=== PATIENT | female | born 1985 | race Two or more races ===

== ENCOUNTER 2024-11-30 14:06 | Inpatient (IN) | payer MEDICAID ==
[~2024-11-30] VITALS: Ht 170.2 cm; Wt 136.6 kg
--- NOTE | 2024-11-30 14:27 | ED.PDOC ---
HPI Comments 39 y.o female presents to the ED with acute onset palpitations associated with substernal chest pain, and SOB, accompanied by severe anxiety and distress. Patient reports symptoms presented about one hour ago, states she tried to take a shower but progressively worsened. Patient states chest pain is non radiating, sharp and constant as well. Patient is pacing, unable to sit still, and reports feeling like she is having a panic attack. Patient denies any other symptoms or pain at this time. Patient has a history of AFIB, not on any medication for this at the moment, anxiety and panic disorder. Chief Complaint: Chest Pain Time Seen by MD: 14:10 Reviewed Notes: Nurses Notes, Medications, Allergies Allergies: Coded Allergies: NO KNOWN ALLERGIES (Unverified , 11/30/24) Information Source: Patient Mode of Arrival: Ambulatory Severity: Moderate Timing: Hours (1) Duration: Since onset Location: Substernal Radiation: No Radiation Quality: Sharp Onset: At Rest Cardiac Risk Factors: Other PE Risk Factors: None History of: Similar pain in past Modifying Factors: Nothing Associated Signs and Symptoms: SOB, Palpitations Past Medical History PAST MEDICAL HISTORY: AFIB, Anxiety Surgical History: Cholecystectomy, PHLEBOTOMY COORDINATOR History: No Pertinent PHLEBOTOMY COORDINATOR History Family History Family History: Reviewed,noncontributory to illness Social History Smoker: Non-Smoker Alcohol: Denies ETOH Use Drugs: Denies Drug Use Lives In: Home Constitutional: denies: chills, diaphoresis, fatigue, fever, malaise, sweats, weakness, others EENTM: denies: blurred vision, double vision, ear bleeding, ear discharge, ear drainage, ear pain, ear ringing, eye pain, eye redness, hearing loss, mouth pain, mouth swelling, nasal discharge, nose bleeding, nose congestion, nose pain, photophobia, tearing, throat pain, throat swelling, voice changes, others Respiratory: reports: SOB at rest, shortness of breath; denies: cough, hemoptysis, orthopnea, SOB with excertion, stridor, wheezing, others Cardiovascular: reports: chest pain, palpitations; denies: dizzy spells, diaphoresis, Dyspnea on exertion, edema, irregular heart beat, left arm pain, lightheadedness, PND, syncope, others Gastrointestinal: denies: abdomen distended, abdominal pain, blood streaked bowels, constipated, diarrhea, dysphagia, difficulty swallowing, hematemesis, melena, nausea, poor appetite, poor fluid intake, rectal bleeding, rectal pain, vomiting, others Genitourinary: denies: abnormal vagina bleeding, burning, dyspareunia, dysuria, flank pain, frequency, hematuria, incontinence, pain, , vagina discharge, urgency, others Neurological: denies: dizziness, fainting, headache, left sided numbness, left sided weakness, numbness, paresthesia, pre-existing deficit, right sided numbness, right sided weakness, seizure, speech problems, tingling, tremors, weakness, others Musculoskeletal: denies: back pain, gout, joint pain, joint swelling, muscle pain, muscle stiffness, neck pain, others Integumetry: denies: bruises, change in color, change in hair/nails, dryness, laceration, lesions, lumps, rash, wounds, others Allergic/Immunocompromised: denies: Difficulty Healing, Frequent Infections, Hives, Itching, others Hematologic/Lymphatic: denies: anemia, blood clots, easy bleeding, easy bruising, swollen glands, others Endocrine: denies: excessive hunger, excessive sweating, excessive thirst, excessive urination, flushing, intolerance to cold, intolerance to heat, unexplained weight gain, unexplained weight loss, others Psychiatric: reports: anxiety, panic disorder; denies: bipolar disorder, d epression, hopeless, schizophrenia, sleepless, suicidal, others All Other Systems: Reviewed and Negative Physical Exam General Appearance: Moderate Distress HEENT: Normal ENT Inspection, Pharynx Normal, TMs Normal Neck: Full Range of Motion, Non-Tender, Normal, Normal Inspection Respiratory: Chest Non-Tender, Lungs Clear, No Accessory Muscle Use, No Respiratory Distress, Normal Breath Sounds Cardiovascular: No Edema, No JVD, No Murmur, No Gallop, Normal Peripheral Pulses, Tachycardia Breast Exam: Deferred Gastrointestinal: No Organomegaly, Non Tender, No Pulsatile Mass, Normal Bowel Sounds, Soft Genitalia: Deferred Pelvic: Deferred Rectal: Deferred Extremities: No calf tenderness, Normal capillary refill, Normal inspection, Normal range of motion, Non-tender, No pedal edema Musculoskeletal : Apperance: Normal Neurologic: Alert, post graduate internship II-XII nml as Tested, No Motor Deficits, Normal Affect, Normal Mood, No Sensory Deficits Cerebellar Function: Normal Reflexes: Normal Skin: Dry, Normal Color, Warm Peripheral Pulses: 3+ Radial (R), 3+ Radial (L) Lymphatic: No Adenopathy EKG EKG : Pulse Rate (adult): 119 Cardiac Rhythm: ST Was a procedure done? Was a procedure done?: No CP Differential Dx Differential Diagnosis: A-fib, A-Flutter, Angina, Anxiety / Panic Attack, Atrial Dysrhythmia, Electrolyte Disorder, Pulmonary Embolus, Sinus Tachycardia Differential Diagnosis: Angina, Chest Wall Pain, Costochondritis, Esophageal reflux/spasm, Pericarditis X-Ray, Labs, Meds, VS Vital Signs Date Time Temp Pulse Resp B/P (MAP) Pulse Ox O2 Delivery O2 Flow Rate FiO2 11/30/24 16:43 89 21 93 Room Air* 0 21 11/30/24 16:42 89 12 132/81 (98) 96 11/30/24 16:41 92 12 132/81 11/30/24 16:01 103 23 137/85 11/30/24 14:27 119 11/30/24 14:25 98.0 119 36 109/85 (93) 98 98.0 11/30/24 14:10 119 Lab Test 11/30/24 17:00 11/30/24 16:30 11/30/24 14:38 Range/Units Urine Color Pending Urine Clarity Pending Urine pH Pending Urine Specific [place] Pending Urine Protein Pending Urine Ketones Pending Urine Blood Pending Urine Nitrite Pending Urine Bilirubin Pending Urine Urobilinogen Pending Urine Leukocyte Esterase Pending Urine RBC Pending Urine Microscopic WBC Pending Urine Squamous Epithelial Cells Pending Urine Bacteria Pending Urine Glucose Pending Troponin I High Sensitivity < 3 L < 3 L </=34 ng/L White Blood Count 15.3 H 4.4-10.8 10^3/uL Red Blood Count 4.41 4.0-5.20 10^6/uL Hemoglobin 11.3 L 12.2-16.2 g/dL Hematocrit 35.2 L 36.0-46.0 % Mean Corpuscular Volume 79.7 L 80.0-100.0 fL Mean Corpuscular Hemoglobin 25.7 L 28.0-32.0 pg Mean Corpuscular Hemoglobin Concent 32.2 32.0-36.0 g/dL Red Cell Distribution Width 16.8 H 11.8-14.3 % Platelet Count 328 140-450 10^3/uL Mean Platelet Volume 8.7 6.9-10.8 fL Neutrophils (%) (Auto) 65.5 37.0-80.0 % Lymphocytes (%) (Auto) 26.2 10.0-50.0 % Monocytes (%) (Auto) 6.1 0.0-12.0 % Eosinophils (%) (Auto) 1.1 0.0-7.0 % Basophils (%) (Auto) 1.1 0.0-2.0 % Neutrophils # (Auto) 10.0 H 1.6-8.6 10 ^3/uL Lymphocytes # (Auto) 4.0 0.4-5.4 10 ^3/uL Monocytes # (Auto) 0.9 0-1.3 10 ^3/uL Eosinophils # (Auto) 0.2 0-0.8 10 ^3/uL Basophils # (Auto) 0.2 0-0.2 10 ^3/uL Nucleated Red Blood Cells 0.0 % Sodium Level 139 136-145 mmol/L Potassium Level 4.1 3.5-5.1 mmol/L Chloride Level 107 98-107 mmol/L Carbon Dioxide Level 16 L 20-31 mmol/L Anion Gap 16 H 5-15 Blood Urea Nitrogen 10 9-23 mg/dL Creatinine 0.67 0.550-1.02 mg/dL Glomerular Filtration Rate Calc 113 >90 mL/min BUN/Creatinine Ratio 14.9 10.0-20.0 Serum Glucose 143 H 74-106 mg/dL Calcium Level 10.4 8.7-10.4 mg/dL Current Medications Medications (Trade) Dose Ordered Sig/Ahmet Route Start Time Stop Time Status Last Admin Lorazepam (Ativan Inj) 2 mg ONCE ONCE IV 11/30/24 15:15 11/30/24 15:16 DC 11/30/24 15:17 Ondansetron HCl (Zofran) 4 mg ONCE ONCE IV 11/30/24 16:00 11/30/24 16:01 DC 11/30/24 15:58 Morphine Sulfate 4 mg ONCE ONCE IV 11/30/24 16:00 11/30/24 16:01 DC 11/30/24 16:01 Patient alert. Tachycardia. Hyperventilating. Saturation pristine on room air. History of atrial fibrillation. EKG reviewed does show tachycardia. She is unable to give a history without being short of breath. Reviewed her history. Explained to the patient. Continue monitoring. Time of 1ST Reevaluation: 14:22 Reevaluation 1ST: Unchanged Patient Education/Counseling: Diagnosis, Treatment, Prognosis Family Education/Counseling: No Family Present Departure 1 Departure Time of Disposition: 14:32 Impression: Primary Impression: Chest pain of unknown etiology Disposition: ADMITTED INPATIENT Admit to: Med Surg Condition: Guarded Critical Care Note Critical Care Time?: Yes (90 min-critical care time only) Critical care comment: She is hyperventilating complaining of chest pain continue to monitor Stability Stability form required: No Heart Score Heart Score: Heart Score Response (Comments) Value History Slightly Suspicious 0 EKG Normal 0 Age <45 0 Risk Factors >3 or Hx ASHD 2 Troponin Normal limit 0 Total 2 I personally scribed for KERI RIVAS MD ([email or web address]) on 11/30/24 at 14:27. Electronically submitted by Demetria Neves ([facility]). KERI RIVAS MD Nov 30, 2024 14:27
--- NOTE | 2024-11-30 14:51 | ECG ---
[facility] Test Date: 2024-11-30 Test Time: 14:10:58 Pat Name: FRANKO LOPEZ Department: ER Room: [address] [place] [address] Gender: F Delivery Department Supervisor: MABEL : 1985 Requested By: KERI RIVAS Order Number: [id number] Reading MD: Cassius Chew Measurements Intervals Donora Rate: 119 P: 0 MT: 166 QRS: 83 QRSD: 91 T: 8 QT: 312 QTc: 439 Interpretive Statements Sinus tachycardia Low voltage, precordial leads Borderline ST elevation, lateral leads Baseline wander in lead(s) I,II,III,aVL,aVF,V1,V2,V5,V6 Electronically Signed On 12-01-2024 12:37:47 PDT by Cassius Chew Please click the below link to view image of tracing.
[2024-11-30 15:00] LABS: Basophils # (auto) 0.2 10 ^3/uL (0-0.2); Eosinophils # (auto) 0.2 10 ^3/uL (0-0.8); Hemoglobin 11.3 g/dL (12.2-16.2)
[2024-11-30 15:01] LABS: Basophils % (auto) 1.1 % (0.0-2.0); Eosinophils % (auto) 1.1 % (0.0-7.0); Hematocrit 35.2 % (36.0-46.0); Lymphocytes % (auto) 26.2 % (10.0-50.0); Mean Corpuscular Hemoglobin 25.7 pg (28.0-32.0); Mean Corpuscular Hgb Conc. 32.2 g/dL (32.0-36.0); Mean Corpuscular Volume 79.7 fL (80.0-100.0); Monocytes # (auto) 0.9 10 ^3/uL (0-1.3); Monocytes % (auto) 6.1 % (0.0-12.0); Neutrophils % (auto) 65.5 % (37.0-80.0); Platelet Count (auto) 328 10^3/uL (140-450); Red Blood Cells 4.41 10^6/uL (4.0-5.20); Red Cell Distribution Width 16.8 % (11.8-14.3); White Blood Cell 15.3 10^3/uL (4.4-10.8)
[2024-11-30 15:11] LABS: Potassium 4.1 mmol/L (3.5-5.1); Sodium 139 mmol/L (136-145)
[2024-11-30 15:12] LABS: Anion Gap 16 (5-15)
[2024-11-30 15:17] LABS: BUN/Creatinine Ratio 14.9 (10.0-20.0); Blood Urea Nitrogen 10 mg/dL (9-23); Calcium 10.4 mg/dL (8.7-10.4); Carbon Dioxide 16 mmol/L (20-31); Chloride 107 mmol/L (98-107); Glucose 143 mg/dL (74-106)
[2024-11-30] MEDS: LORazepam 2MG/ML-1ML VIAL IV ONE ×2 (15:17→20:22)
[2024-11-30] MEDS: ONDANSETRON HCL 4 MG/2 ML VIAL IV ONE (15:58)
[2024-11-30] MEDS: MORPHINE SULFATE 4 MG/ML SYR/VIAL IV ONE ×2 (16:01→20:22)
[2024-11-30 16:43] VITALS: PULSE 89; RESP 21; O2SAT 93
[2024-11-30 17:07] LABS: Urine Bacteria None Seen /hpf (None Seen)
[2024-11-30 17:22] LABS: Urine Amorphous Crystal FEW /hpf (None Seen); Urine Blood 3+ /uL (Negative); Urine Clarity Turbid (Clear); Urine Color Yellow (Yellow); Urine Mucus FEW (None Seen); Urine Protein, UAD Negative (Negative); Urine Specific Gravity 1.019 (1.001-1.035); Urine Squamous Epithelial Cell MOD /hpf (<5); Urine Urobilinogen Normal (Negative); Urine WBC < 1 /HPF (0-5); Urine pH 5.5 (5.0-9.0)
[2024-11-30 19:40] VITALS: PULSE 104; RESP 16; O2SAT 97
[2024-11-30] MEDS ORDERED: hydrALAZINE HCL 20 MG/ML VL IV PRN (21:00)
[2024-11-30] MEDS ORDERED: ONDANSETRON HCL 4 MG/2 ML VIAL IV PRN (21:00)
[2024-11-30] MEDS ORDERED: DOCUSATE SOD 100 MG CAP PO PRN (21:00)
[2024-11-30] MEDS ORDERED: ACETAMINOPHEN 325 MG TAB PO PRN (21:00)
[2024-11-30] MEDS: SODIUM CHLORIDE 0.9% 1,000 ML IV SCH (21:56)
[2024-11-30] MEDS: cefTRIAXone 1GM/50ML D5W 50 ML IV ONE (21:56)
--- NOTE | 2024-11-30 22:58 | DVHHP2 ---
History of Present Illness Reason for Visit: Chest pain of unknown etiology History of Present Illness The patient is a 39-year-old female morbidly obese with past medical history of AFib, anxiety, and hypertension who presented to [facility] ED with complaint of acute onset of palpitation. Patient reports symptoms progressively get worse with substernal chest pain, nonradiating, sharp in nature, rating 5/10 numeric scale, shortness of breaths, anxiety, getting worse that prompted this visit. Patient was seen and evaluated in the ED, laboratory data shows WBC 15.3, hemoglobin 11.3, hematocrit 35.2, platelets 328, sodium 139, potassium 4.1, BUN 10, creatinine 0.67, anion gap 16, glucose 143, troponin < 3, blood pressure 143/96, heart rate 96, temperature 98.0 F, O2 saturation 98% on oxygen. Please see medication orders section in the computer. On my assessment, patient denied chest pain at this moment, no dizziness, no headache, no diaphoresis, currently on oxygen, no nausea, vomiting, no fever, no chills. Patient was admitted for further evaluation and medical management. Past Medical History AFIB, Anxiety Past Surgical History Cholecystectomy, Family History Reviewed, noncontributory to the management of this case. Past Social History The patient lives at home, denies smoking, alcohol or illicit drugs abuse. Review of Systems Constitutional: No: Fever, Chills, Sweats, Weakness, Malaise, Other Eyes: No: Pain, Vision change, Conjunctivae inflammation, Eyelid inflammation, Other, Redness ENT: No: Ear pain, Ear discharge, Nose pain, Nose discharge, Nose congestion, Mouth pain, Mouth swelling, Throat pain, Throat swelling, Other Respiratory: Shortness of breath, Other (SOB at rest); No: Cough, Dry, SOB with excertion, Wheezing, Hemoptysis, Pleuritic Pain, Sputum, Wheezing Cardiovascular: Chest Pain, Palpitations; No: Orthopnea, Paroxysmal Noc. Dyspnea, Edema, Lt Headedness, Other Gastrointestinal: No: Nausea, Vomiting, Abdominal Pain, Diarrhea, Constipation, Melena, Hematochezia, Other Genitourinary: No Dysuria, No Frequency, No Incontinence, No Hematuria, No Retention, No Other Musculoskeletal: No: other, neck pain, shoulder pain, arm pain, back pain, hand pain, leg pain, foot pain Skin: No: Rash, Lesions, Jaundice, Bruising, Other Neurological: No: Weakness, Numbness, Incoordination, Change in speech, Confusion, Seizures, Other Allergies: Coded Allergies: NO KNOWN ALLERGIES (Unverified , 11/30/24) Medications Current Medications Medications Dose Ordered Sig/Ahmet Route Start Time Stop Time Status Last Admin Dose Admin Lisinopril 20 mg DAILY PO 12/01/24 10:00 Hydralazine HCl 10 mg Q6HP PRN IV 11/30/24 21:00 Lorazepam 0.5 mg Q8HP PRN IV 11/30/24 21:00 Aspirin 81 mg DAILY PO 12/01/24 10:00 Sodium Chloride 1,000 ml @ 60 mls/hr [id number] IV 11/30/24 21:00 11/30/24 21:56 60 MLS/HR Acetaminophen/ Hydrocodone Bitart 1 tab Q4HP PRN PO 11/30/24 21:00 Ondansetron HCl 4 mg Q4HP PRN IV 11/30/24 21:00 Docusate Sodium 100 mg BIDPRN PRN PO 11/30/24 21:00 Acetaminophen 650 mg Q6HP PRN PO 11/30/24 21:00 Morphine Sulfate 2 mg Q4HPRN PRN IV 11/30/24 21:00 Ceftriaxone Sodium 50 ml @ 100 mls/hr DAILY@09 IV 12/01/24 09:00 Exam Vital Signs Vital Signs Date Time Temp Pulse Resp B/P (MAP) Pulse Ox O2 Delivery O2 Flow Rate FiO2 11/30/24 20:52 97 17 118/85 11/30/24 19:40 97 Room Air* 0 21 11/30/24 19:40 98.3 98.3 General Appearance: Alert, Oriented X3, Cooperative, No acute distress HEENT: Atraumatic, PERRLA, EOMI, Mucous membr. moist/pink Respiratory: Normal air movement Cardiovascular: Regular rate, Normal S1, Normal S2, No murmurs Abdominal: Normal bowel sounds, Soft, No tenderness, No hepatospenomegaly, No masses Extremities: No clubbing, No cyanosis, No edema, Normal pulses, No tenderness/ swelling Skin: No rashes, No breakdown, No significant lesion Neuro: Normal speech, Normal tone, Sensation intact, Cranial nerves 3-12 NL, Reflexes 2+ Psych/Mental Status: Mental status NL, Mood NL Labs/Xrays Labs Test 11/30/24 17:00 11/30/24 16:30 11/30/24 14:38 Range/Units Urine Color Yellow Yellow Urine Clarity Turbid H Clear Urine pH 5.5 5.0-9.0 Urine Specific [place] 1.019 1.001-1.035 Urine Protein Negative Negative Urine Ketones Negative Negative Urine Blood 3+ H Negative /uL Urine Nitrite Negative Negative Urine Bilirubin Negative Negative Urine Urobilinogen Normal Negative mg/dL Urine Leukocyte Esterase Negative Negative /uL Urine RBC 14 0 - 4 /hpf Urine Microscopic WBC < 1 0-5 /HPF Urine Squamous Epithelial Cells Mod <5 /hpf Urine Amorphous Crystals Few None Seen /hpf Urine Bacteria None seen None Seen /hpf Urine Mucus Few None Seen Urine Glucose Normal Normal mg/dL Troponin I High Sensitivity < 3 L </=34 ng/L White Blood Count 15.3 H 4.4-10.8 10^3/uL Red Blood Count 4.41 4.0-5.20 10^6/uL Hemoglobin 11.3 L 12.2-16.2 g/dL Hematocrit 35.2 L 36.0-46.0 % Mean Corpuscular Volume 79.7 L 80.0-100.0 fL Mean Corpuscular Hemoglobin 25.7 L 28.0-32.0 pg Mean Corpuscular Hemoglobin Concent 32.2 32.0-36.0 g/dL Red Cell Distribution Width 16.8 H 11.8-14.3 % Platelet Count 328 140-450 10^3/uL Mean Platelet Volume 8.7 6.9-10.8 fL Neutrophils (%) (Auto) 65.5 37.0-80.0 % Lymphocytes (%) (Auto) 26.2 10.0-50.0 % Monocytes (%) (Auto) 6.1 0.0-12.0 % Eosinophils (%) (Auto) 1.1 0.0-7.0 % Basophils (%) (Auto) 1.1 0.0-2.0 % Neutrophils # (Auto) 10.0 H 1.6-8.6 10 ^3/uL Lymphocytes # (Auto) 4.0 0.4-5.4 10 ^3/uL Monocytes # (Auto) 0.9 0-1.3 10 ^3/uL Eosinophils # (Auto) 0.2 0-0.8 10 ^3/uL Basophils # (Auto) 0.2 0-0.2 10 ^3/uL Nucleated Red Blood Cells 0.0 % Sodium Level 139 136-145 mmol/L Potassium Level 4.1 3.5-5.1 mmol/L Chloride Level 107 98-107 mmol/L Carbon Dioxide Level 16 L 20-31 mmol/L Anion Gap 16 H 5-15 Blood Urea Nitrogen 10 9-23 mg/dL Creatinine 0.67 0.550-1.02 mg/dL Glomerular Filtration Rate Calc 113 >90 mL/min BUN/Creatinine Ratio 14.9 10.0-20.0 Serum Glucose 143 H 74-106 mg/dL Calcium Level 10.4 8.7-10.4 mg/dL Assessment/Plan Assessment/Plan Chest pain of unknown etiology Morbid obesity Leukocytosis, unspecified Generalized weakness Plan 1. Admit to telemetry unit 2. Breathing treatment 3. Pain control management 4. IV antibiotic management 5. Management of fluids and electrolytes 6. Consultation for hospitalist 7. Diagnostic test chest x-ray 8. DVT prophylaxis-on aspirin 9. Repeat labs CBC, CMP in a.m. 10. Home medication reviewed and reconciled 11. Continue with current medical management 12. Treatment plan discussed with patient and RN. Patient verbalized under standing. Plan discussed with: Patient, Other (RN) My Orders Orders - MARCOS WATSON DNP Procedure Category Date Status Time Lisinopril Tablet PHA 12/01/24 In Process (Zestril Tablet) 10:00 Hydralazine Injection PHA 11/30/24 In Process (Apresoline Inject 21:00 Lorazepam 2mg/Ml Inj PHA 11/30/24 In Process (Ativan Inj) 21:00 Aspirin Tablet PHA 12/01/24 In Process 10:00 Allergies ROYA 11/30/24 In Process 20:47 Code Status CODE 11/30/24 Transmitted 20:47 Sodium Chloride 0.9% PHA 11/30/24 In Process 21:00 Oxygen Per Hour RT 11/30/24 Transmitted 20:47 Hydrocodone-Acet PHA 11/30/24 In Process 5/325mg Tab ([place] 21:00 Ondansetron Hcl PHA 11/30/24 In Process (Zofran) 21:00 Docusate Sodium PHA 11/30/24 In Process Capsule (Colace 21:00 Complete Blood Count LAB 12/01/24 Verified 04:00 Comprehensive LAB 12/01/24 Verified Metabolic Panel 04:00 Cardiac DIET 12/01/24 Transmitted Diet-2gna,Lofat,Lochol Breakfast Condition: Serious ROYA 11/30/24 In Process 20:47 Acetaminophen Tablet PHA 11/30/24 In Process (Tylenol Tablet) 21:00 Bedrest With Bathroom ROYA 11/30/24 In Process Privileg 20:47 Morphine Sulfate PHA 11/30/24 In Process Injection 21:00 Sequential ROYA 11/30/24 In Process Compression Device Blood Culture ALHAJI 11/30/24 In Process 21:20 Ceftriaxone 1gm/50ml PHA 12/01/24 In Process D5w (Rocephin) 09:00 Problem List: (1) Chest pain of unknown etiology (2) Morbid obesity (3) Leukocytosis, unspecified (4) Generalized weakness Date of Service: Nov 30, 2024 Billing Provider: MARCOS WATSON DNP Common Visit Codes: [id number] INP/OBS CARE (HIGH) MARCOS WATSON DNP Nov 30, 2024 22:58
[2024-11-30] MEDS ORDERED: NITROGLYCERIN 0.4 MG SL TAB SL PRN (23:00)
[2024-11-30] MEDS ORDERED: MORPHINE SULFATE INJ 2 MG/ml SYRG IV PRN (23:00)
[2024-12-01] VITALS (9 sets, daily range): BP systolic 106–134; BP diastolic 59–90; PULSE 77–91; RESP 16–19; TEMP 97.6–98.1; O2SAT 96–98
[2024-12-01] MEDS: MORPHINE SULFATE INJ 2 MG/ml SYRG IV PRN (02:16)
[2024-12-01] MEDS: MORPHINE SULFATE 4 MG/ML SYR/VIAL ONE (03:06)
[2024-12-01] MEDS: LORazepam 2MG/ML-1ML VIAL IV PRN (03:48)
[2024-12-01 05:34] LABS: Basophils # (auto) 0.1 10 ^3/uL (0-0.2); Basophils % (auto) 0.5 % (0.0-2.0); Eosinophils # (auto) 0.2 10 ^3/uL (0-0.8); Eosinophils % (auto) 1.8 % (0.0-7.0); Hemoglobin 10.3 g/dL (12.2-16.2); Lymphocytes # (auto) 2.9 10 ^3/uL (0.4-5.4); Lymphocytes % (auto) 26.3 % (10.0-50.0); Mean Corpuscular Hemoglobin 25.6 pg (28.0-32.0); Mean Corpuscular Hgb Conc. 31.3 g/dL (32.0-36.0); Mean Corpuscular Volume 81.8 fL (80.0-100.0); Monocytes # (auto) 0.7 10 ^3/uL (0-1.3); Monocytes % (auto) 6.7 % (0.0-12.0); Neutrophils # (auto) 7.1 10 ^3/uL (1.6-8.6); Neutrophils % (auto) 64.7 % (37.0-80.0); Nucleated Red Blood Cells % 0.1 %; Platelet Count (auto) 255 10^3/uL (140-450); Red Blood Cells 4.03 10^6/uL (4.0-5.20); Red Cell Distribution Width 16.6 % (11.8-14.3)
[2024-12-01 06:16] LABS: Anion Gap 10 (5-15); BUN/Creatinine Ratio 18.5 (10.0-20.0); Blood Urea Nitrogen 10 mg/dL (9-23); Calcium 9.3 mg/dL (8.7-10.4); Carbon Dioxide 21 mmol/L (20-31); Chloride 107 mmol/L (98-107); Potassium 3.8 mmol/L (3.5-5.1); Sodium 138 mmol/L (136-145); Total Protein 7.5 g/dL (5.7-8.2)
[2024-12-01 06:17] LABS: Albumin 4.3 g/dL (3.2-4.8); Bilirubin, Total 0.5 mg/dL (0.2-1.0)
[2024-12-01 06:19] LABS: Alanine Aminotransferase 78 U/L (7-40); Alkaline Phosphatase 176 U/L (46-116); Aspartate Aminotransferase 90 U/L (13-40); Glucose 120 mg/dL (74-106)
[2024-12-01] MEDS: HYDROcodone-ACET 5/325MG TAB PO PRN (09:53)
[2024-12-01] MEDS: ASPirin 81 mg TAB PO SCH (09:53)
[2024-12-01] MEDS: cefTRIAXone 1GM/50ML D5W 50 ML IV SCH (10:49)
[2024-12-01] MEDS: LISINOPRIL 20 MG TAB PO SCH (10:53)
[2024-12-01] MEDS ORDERED: MORPHINE SULFATE 4 MG/ML SYR/VIAL IV PRN (16:30)
[2024-12-01] MEDS: MORPHINE SULFATE 4 MG/ML SYR/VIAL IV PRN (16:39)
--- NOTE | 2024-12-01 17:11 | DVHPN2 ---
Subjective Patient was seen and evaluated by me. Complaining of palpitations also complaining of anxiety. Changes from previous H/P or p: No Changes Eyes: No Pain, No Vision change, No Conjunctivae inflammation, No Eyelid inflammation, No Other, No Redness ENT: No Ear pain, No Ear discharge, No Nose pain, No Nose discharge, No Nose congestion, No Mouth pain, No Mouth swelling, No Throat pain, No Throat swelling, No Other Cardiovascular: Chest Pain, Palpitations; No Orthopnea, No Paroxysmal Noc. Dyspnea, No Edema, No Lt Headedness, No Other Respiratory: No Cough, No Dry; Shortness of breath; No SOB with excertion, No Wheezing, No Hemoptysis, No Pleuritic Pain, No Sputum; Other (SOB at rest) Gastrointestinal: No Nausea, No Vomiting, No Abdominal Pain, No Diarrhea, No Constipation, No Melena, No Hematochezia, No Other Genitourinary: No Dysuria, No Frequency, No Incontinence, No Hematuria, No Retention, No Other Musculoskeletal: No other, No neck pain, No shoulder pain, No arm pain, No back pain, No hand pain, No leg pain, No foot pain Skin: No Rash, No Lesions, No Jaundice, No Bruising, No Other Objective Vitals Vital Signs Date Time Temp Pulse Resp B/P (MAP) Pulse Ox O2 Delivery O2 Flow Rate FiO2 12/01/24 16:39 81 16 114/73 12/01/24 13:09 97.7 96 97.7 12/01/24 10:30 Room Air* 0 21 Exam HEENT pupils are reactive Neck is supple CV is S1-S2 regular rate and rhythm Respiratory diminished breath sounds bases GI positive bowel sound Extremity no 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 Medications Current Medications Medications Dose Ordered Sig/Ahmet Route Start Time Stop Time Status Last Admin Dose Admin Lisinopril 20 mg DAILY PO 12/01/24 10:00 12/01/24 10:53 20 MG Hydralazine HCl 10 mg Q6HP PRN IV 11/30/24 21:00 Lorazepam 0.5 mg Q8HP PRN IV 11/30/24 21:00 12/01/24 09:53 0.5 MG Aspirin 81 mg DAILY PO 12/01/24 10:00 12/01/24 09:53 81 MG Sodium Chloride 1,000 ml @ 60 mls/hr [id number] IV 11/30/24 21:00 12/01/24 14:40 60 MLS/HR Acetaminophen/ Hydrocodone Bitart 1 tab Q4HP PRN PO 11/30/24 21:00 12/01/24 09:53 1 TAB Ondansetron HCl 4 mg Q4HP PRN IV 11/30/24 21:00 Docusate Sodium 100 mg BIDPRN PRN PO 11/30/24 21:00 Acetaminophen 650 mg Q6HP PRN PO 11/30/24 21:00 Ceftriaxone Sodium 50 ml @ 100 mls/hr DAILY@09 IV 12/01/24 09:00 12/01/24 10:49 100 MLS/HR Nitroglycerin 0.4 mg Q5MINP PRN SL 11/30/24 23:00 Morphine Sulfate 2 mg Q4HPRN PRN IV 12/01/24 16:30 12/01/24 16:39 2 MG Morphine Sulfate 2 mg Q30M PRN IV 12/01/24 16:30 Laboratory Results Laboratory Tests 12/01/24 05:05 Chemistry Test 12/01/24 05:05 Albumin 4.3 g/dL (3.2-4.8) Calcium Level 9.3 mg/dL (8.7-10.4) Total Protein 7.5 g/dL (5.7-8.2) LFT Test 12/01/24 05:05 Alanine Aminotransferase (ALT) 78 U/L (7-40) H Alkaline Phosphatase 176 U/L (46-116) H Aspartate Amino Transferase (AST) 90 U/L (13-40) H Total Bilirubin 0.5 mg/dL (0.2-1.0) HgA1c, TSH Test 12/01/24 05:05 Thyroid Stimulating Hormone (TSH) 3.57 uIU/mL (0.55-4.78) Urinalysis Test 11/30/24 17:00 Urine Color Yellow (Yellow) Urine Clarity Turbid (Clear) H Urine pH 5.5 (5.0-9.0) Urine Specific [place] 1.019 (1.001-1.035) Urine Protein Negative (Negative) Urine Ketones Negative (Negative) Urine Blood 3+ /uL (Negative) H Urine Nitrite Negative (Negative) Urine Bilirubin Negative (Negative) Urine Urobilinogen Normal mg/dL (Negative) Urine Leukocyte Esterase Negative /uL (Negative) Urine RBC 14 /hpf (0 - 4) Urine Microscopic WBC < 1 /HPF (0-5) Urine Squamous Epithelial Cells Mod /hpf (<5) Urine Amorphous Crystals Few /hpf (None Seen) Urine Bacteria None seen /hpf (None Seen) Urine Mucus Few (None Seen) Urine Glucose Normal mg/dL (Normal) Assessment/Plan Assessment/Plan 39-year-old female with a known history of anxiety, presented to the hospital with the shortness a glass palpitations found to have 1. Chest pain pills with the palpitations 2. Anxiety disorder, ran out of anxiety meds before admission. 3. Hypertension 4. Morbid obesity class three 5. Leukocytosis likely reactive no evidence of any UTI pneumonia blood cultures are pending. - add anxiolytic, 2D echo, outpatient follow up with the Cardiology upon discharge. Plan discussed with: Patient My Orders Orders - STEVEN KELLER MD Procedure Category Date Status Time Chest Xray 1 View XY 12/01/24 Taken 16:45 Date of Service: Dec 01, 2024 Billing Provider: STEVEN KELLER MD Common Visit Codes: [id number] INP/OBS CARE(MOD) STEVEN KELLER MD Dec 01, 2024 17:11
--- NOTE | 2024-12-01 17:16 | DVH ---
EXAM: XR Chest, 1 View CLINICAL INDICATION: Chest pain. TECHNIQUE: Frontal view of the chest. COMPARISON: None FINDINGS: LUNGS AND PLEURAL SPACES: Unremarkable. No consolidation. No pneumothorax. HEART: Unremarkable. No cardiomegaly. MEDIASTINUM: Unremarkable. Normal mediastinal contour. BONES/JOINTS: Unremarkable. No acute fracture. OTHER FINDINGS: . IMPRESSION: No acute cardiopulmonary process.
[2024-12-02 01:00] VITALS: BP 119/75; PULSE 79; RESP 19; TEMP 97.6; O2SAT 97
[2024-12-02 05:00] VITALS: BP 110/69; PULSE 84; RESP 19; TEMP 97.3; O2SAT 96
[2024-12-02 07:20] LABS: Basophils # (auto) 0 10 ^3/uL (0-0.2); Basophils % (auto) 0.5 % (0.0-2.0); Eosinophils # (auto) 0.1 10 ^3/uL (0-0.8); Eosinophils % (auto) 1.5 % (0.0-7.0); Hematocrit 31.1 % (36.0-46.0); Hemoglobin 10.2 g/dL (12.2-16.2); Lymphocytes # (auto) 2.3 10 ^3/uL (0.4-5.4); Lymphocytes % (auto) 26.3 % (10.0-50.0); Mean Corpuscular Hemoglobin 26.2 pg (28.0-32.0); Mean Corpuscular Hgb Conc. 32.7 g/dL (32.0-36.0); Mean Corpuscular Volume 80.1 fL (80.0-100.0); Monocytes # (auto) 0.7 10 ^3/uL (0-1.3); Monocytes % (auto) 7.5 % (0.0-12.0); Neutrophils # (auto) 5.6 10 ^3/uL (1.6-8.6); Neutrophils % (auto) 64.2 % (37.0-80.0); Platelet Count (auto) 253 10^3/uL (140-450); Red Blood Cells 3.89 10^6/uL (4.0-5.20); Red Cell Distribution Width 16.4 % (11.8-14.3); White Blood Cell 8.8 10^3/uL (4.4-10.8)
[2024-12-02 08:00] VITALS: PULSE 82
[2024-12-02 09:00] VITALS: BP 131/93; PULSE 78; RESP 17; TEMP 97.7; O2SAT 98
[2024-12-02 12:59] VITALS: BP 120/81; PULSE 76; RESP 18; TEMP 97.6; O2SAT 98
--- NOTE | 2024-12-02 16:56 | DVHDS2 ---
Discharge Summary Date of Admission Nov 30, 2024 at 22:57 Date of Discharge: Dec 02, 2024 Labs/Diagnostic Data: Laboratory Results Test 12/02/24 06:10 12/01/24 05:05 11/30/24 17:00 11/30/24 16:30 White Blood Count 8.8 10^3/uL (4.4-10.8) Red Blood Count 3.89 10^6/uL (4.0-5.20) Hemoglobin 10.2 g/dL (12.2-16.2) Hematocrit 31.1 % (36.0-46.0) Mean Corpuscular Volume 80.1 fL (80.0-100.0) Mean Corpuscular Hemoglobin 26.2 pg (28.0-32.0) Mean Corpuscular Hemoglobin Concent 32.7 g/dL (32.0-36.0) Red Cell Distribution Width 16.4 % (11.8-14.3) Platelet Count 253 10^3/uL (140-450) Mean Platelet Volume 8.8 fL (6.9-10.8) Neutrophils (%) (Auto) 64.2 % (37.0-80.0) Lymphocytes (%) (Auto) 26.3 % (10.0-50.0) Monocytes (%) (Auto) 7.5 % (0.0-12.0) Eosinophils (%) (Auto) 1.5 % (0.0-7.0) Basophils (%) (Auto) 0.5 % (0.0-2.0) Neutrophils # (Auto) 5.6 10 ^3/uL (1.6-8.6) Lymphocytes # (Auto) 2.3 10 ^3/uL (0.4-5.4) Monocytes # (Auto) 0.7 10 ^3/uL (0-1.3) Eosinophils # (Auto) 0.1 10 ^3/uL (0-0.8) Basophils # (Auto) 0 10 ^3/uL (0-0.2) Nucleated Red Blood Cells 0.0 % Sodium Level 138 mmol/L (136-145) Potassium Level 3.8 mmol/L (3.5-5.1) Chloride Level 107 mmol/L (98-107) Carbon Dioxide Level 21 mmol/L (20-31) Anion Gap 10 (5-15) Blood Urea Nitrogen 10 mg/dL (9-23) Creatinine 0.54 mg/dL (0.550-1.02) Glomerular Filtration Rate Calc 119 mL/min (>90) BUN/Creatinine Ratio 18.5 (10.0-20.0) Serum Glucose 120 mg/dL (74-106) Calcium Level 9.3 mg/dL (8.7-10.4) Total Bilirubin 0.5 mg/dL (0.2-1.0) Aspartate Amino Transferase (AST) 90 U/L (13-40) Alanine Aminotransferase (ALT) 78 U/L (7-40) Alkaline Phosphatase 176 U/L (46-116) Total Protein 7.5 g/dL (5.7-8.2) Albumin 4.3 g/dL (3.2-4.8) Thyroid Stimulating Hormone (TSH) 3.57 uIU/mL (0.55-4.78) Urine Color Yellow (Yellow) Urine Clarity Turbid (Clear) Urine pH 5.5 (5.0-9.0) Urine Specific [place] 1.019 (1.001-1.035) Urine Protein Negative (Negative) Urine Ketones Negative (Negative) Urine Blood 3+ /uL (Negative) Urine Nitrite Negative (Negative) Urine Bilirubin Negative (Negative) Urine Urobilinogen Normal mg/dL (Negative) Urine Leukocyte Esterase Negative /uL (Negative) Urine RBC 14 /hpf (0 - 4) Urine Microscopic WBC < 1 /HPF (0-5) Urine Squamous Epithelial Cells Mod /hpf (<5) Urine Amorphous Crystals Few /hpf (None Seen) Urine Bacteria None seen /hpf (None Seen) Urine Mucus Few (None Seen) Urine Glucose Normal mg/dL (Normal) Troponin I High Sensitivity < 3 ng/L (</=34) Other Laboratory Tests 12/02/24 06:10 12/01/24 05:05 Brief Hx & Hospital Course: 39-year-old female with a known history of anxiety, presented to the hospital with the shortness of breaths palpitations found to have suspected anxiety disorder. Patient has stated that she has known anxiety disorder currently with a handout of Xanax. Patient's was eventually monitored overnight. Patient has had a WBC count but denies any dysuria hematuria denies any fever cough or phlegm blood cultures are negative to date. Patient's antibiotic will be stopped. Patient is being discharged under stable condition on anxiety pale with close follow up as an outpatient with the PCP. Also need to follow up with the Cardiology upon discharge. Patient was recommended to return to ER if there is any fevers chills nausea vomiting, dysuria hematuria cough or phlegm or any concern. Condition at Discharge: Stable Final Diagnosis/Problems List 1. Chest pain with a palpitation ruled out acute DC 2. Anxiety disorder 3. Morbid obesity classIII, diet weight reduction and exercise counseling 4. Noncompliance patient's ran out of anxiety pills recently Discharge Disposition: Home SNF Discharge Will this Physician continue t: No Discharge Instruct/Medications New Medications: Alprazolam (Alprazolam) 0.5 Mg Tab 1 TAB PO DAILY, #14 TAB Discharge Statement: "Patient was advised to return to the ER or call 911 if any headaches, dizziness, shortness of breath, chest pain, abdominal pain, bleeding, fevers, or worsening of medical condition. Patient was counseled about treatment plan, medications, possible side effects, patientverbalized understanding. All questions were answered to the best of my ability. This discharge took greater then 30 minutes in planning, reviewing documentation, counseling the patient, and discussing with other team members." ASSESSMENT ASSESSMENT Assessment Date of Service: Dec 02, 2024 Billing Provider: STEVEN KELLER MD Common Visit Codes: 56218-RXM/OBS DISCH DAY >30min STEVEN KELLER MD Dec 02, 2024 16:56
[2024-12-02] MEDS ORDERED: ALPR0.5T7 PO (16:57)
[2024-12-02 17:00] VITALS: BP_SYST 131; BP_SYST 135; BP_DIAS 82; BP_DIAS 93; PULSE 78; PULSE 80; RESP 17; RESP 20; TEMP 97.7; TEMP 98; O2SAT 97; O2SAT 98
== END 2024-12-02 17:25 | disposition home or self-care (01) | DRG 203 ==
LOC: ER 14:06 → OVERFLOW 22:57 → TELE-CENTR 12-01 18:25
PROVIDERS: ADMIT Internal Medicine; ATTEND Internal Medicine
DX: M94.0 Chondrocostal junction syndrome [Tietze] (principal); D72.829 Elevated white blood cell count, unspecified; E66.813 Obesity, class 3; R53.1 Weakness; I10 Essential (primary) hypertension; F41.0 Panic disorder [episodic paroxysmal anxiety]; I48.91 Unspecified atrial fibrillation; Z90.49 Acquired absence of other specified parts of digestive tract; Z98.891 History of uterine scar from previous surgery; Z91.199 Patient's noncompliance with other medical treatment and regimen due to unspecified reason; Z68.41 Body mass index [BMI] 40.0-44.9, adult
CPT/HCPCS: 36415; 71045; 80048; 80053; 81001; 84443; 84484; 85025; 87040; 93005; 96365; 96375; 99291; 99292; G0378; J2405